=== PATIENT | female | born 1955 | race African-American/Black ===

== ENCOUNTER 2016-06-21 12:12 | Emergency (ER) | payer SELFPAY ==
[2016-06-21] MEDS ORDERED: Acetaminophen 500 MG TAB ONE (13:01)
[2016-06-21] MEDS ORDERED: Oseltamivir 75 MG CAP ONE (13:07)
[2016-06-21] MEDS ORDERED: Benzonatate 100 MG CAP ONE (13:07)
[2016-06-21] MEDS ORDERED: predniSONE 20 MG TAB ONE (13:07)
== END 2016-06-21 13:18 | disposition home or self-care (01) ==
LOC: MADERS 12:12
DX: J10.1 Influenza due to other identified influenza virus with other respiratory manifestations (principal); E78.5 Hyperlipidemia, unspecified; I10 Essential (primary) hypertension
CPT/HCPCS: 87081; 87430; 99283; J7506

== ENCOUNTER 2016-10-22 22:56 | Emergency (ER) | payer SELFPAY ==
[2016-10-23] MEDS ORDERED: AMOXicillin 250 MG CAP ONE (01:27)
[2016-10-23] MEDS ORDERED: Diazepam 5 MG TAB ONE (01:27)
[2016-10-23] MEDS ORDERED: HYDROcodone/Acetaminophen 10/325 mg Tablet ONE (01:27)
[2016-10-23] MEDS ORDERED: Naproxen 500 MG TAB ONE (01:27)
[2016-10-23] MEDS ORDERED: Benzonatate 100 MG CAP ONE (01:27)
== END 2016-10-23 01:55 | disposition home or self-care (01) ==
LOC: MADERS 22:56
DX: M54.12 Radiculopathy, cervical region (principal); J20.9 Acute bronchitis, unspecified; E78.2 Mixed hyperlipidemia; I10 Essential (primary) hypertension; Z79.899 Other long term (current) drug therapy
CPT/HCPCS: 99283

== ENCOUNTER 2016-11-20 18:14 | Emergency (ER) | payer SELFPAY | END 2016-11-20 20:55 | disposition left against medical advice (07) | LOC: MADERS 18:14 | DX: Z53.21 Procedure and treatment not carried out due to patient leaving prior to being seen by health care provider (principal) ==

== ENCOUNTER 2016-12-06 12:15 | Emergency (ER) | payer SELFPAY ==
[2016-12-06] MEDS ORDERED: Ibuprofen 800 MG TAB ONE (13:01)
[2016-12-06] MEDS ORDERED: Cyclobenzaprine 10 MG TAB ONE (13:01)
[2016-12-06] MEDS ORDERED: HYDROcodone/Acetaminophen 5/325 mg Tablet ONE (13:01)
[2016-12-06] MEDS ORDERED: Dexamethasone 4 MG TAB ONE (13:01)
[2016-12-06] MEDS ORDERED: Hydrochlorothiazide 25 MG TAB ONE (13:22)
[2016-12-06] MEDS ORDERED: Lisinopril 10 MG TAB ONE (13:22)
== END 2016-12-06 13:10 | disposition home or self-care (01) ==
LOC: MADERS 12:15
DX: M54.12 Radiculopathy, cervical region (principal); I10 Essential (primary) hypertension; E78.5 Hyperlipidemia, unspecified
CPT/HCPCS: 99283; J8540

== ENCOUNTER 2017-02-04 21:06 | Emergency (ER) | payer SELFPAY ==
[2017-02-04] MEDS ORDERED: Naproxen 500 MG TAB ONE (22:06)
== END 2017-02-04 22:10 | disposition home or self-care (01) ==
LOC: MADERS 21:06
DX: S83.92XA Sprain of unspecified site of left knee, initial encounter (principal); E78.2 Mixed hyperlipidemia; I10 Essential (primary) hypertension; Z79.899 Other long term (current) drug therapy; W19.XXXA Unspecified fall, initial encounter
CPT/HCPCS: 99283

== ENCOUNTER 2017-02-19 12:18 | Emergency (ER) | payer SELFPAY ==
[2017-02-19] MEDS ORDERED: Ibuprofen 800 MG TAB ONE (12:33)
== END 2017-02-19 12:40 | disposition home or self-care (01) ==
LOC: MADERS 12:18
DX: J11.1 Influenza due to unidentified influenza virus with other respiratory manifestations (principal); E78.5 Hyperlipidemia, unspecified; I10 Essential (primary) hypertension; Z79.899 Other long term (current) drug therapy
CPT/HCPCS: 94760; 99283

== ENCOUNTER 2022-03-04 14:42 | Emergency (ER) | payer MEDICARE | END 2022-03-04 17:51 | disposition home or self-care (01) | LOC: MADERS 14:42 | DX: J06.9 Acute upper respiratory infection, unspecified (principal); I10 Essential (primary) hypertension; E78.00 Pure hypercholesterolemia, unspecified; Z79.899 Other long term (current) drug therapy | CPT/HCPCS: 87081; 87430; 87804; 99283 ==

== ENCOUNTER 2024-01-20 16:28 | Emergency (ER) | payer MEDICARE ==
[2024-01-20] MEDS ORDERED: cloNIDine 0.1 MG TAB ONE (17:09)
== END 2024-01-20 18:52 | disposition home or self-care (01) ==
LOC: MADERS 16:28
DX: S40.011A Contusion of right shoulder, initial encounter (principal); V89.2XXA Person injured in unspecified motor-vehicle accident, traffic, initial encounter
CPT/HCPCS: 71045; 72125